=== PATIENT | male | born 1960 | race Caucasian/White ===

== ENCOUNTER 2024-05-21 14:56 | Outpatient (CLI) | payer MEDICARE, SELFPAY ==
--- NOTE | 2024-05-21 | CA_ITS ---
APPROVED REPORT EXAM: Comprehensive 2D, Doppler, and color-flow Echocardiogram Insurance Defense Attorney: Molly Alfonso RDCS Ht: 5 ft 10 in Wt: 225lbs BSA: 2.19 BP: 110/78 mmHg Indications: HEART TRANSPLANT,EF FXN 2D Dimensions LVOT 2.23 cm (M/F) 1.5-2.5 M-Mode Dimensions RVDd 3.43 cm (0.9-2.6) LVDd 4.93 cm (3.5-5.7) LVDs 3.16 cm (3.5-5.7) IVSd 1.06 cm (0.6-1.1) PWd 1.06 cm (0.6-1.1) EF (Teich) 65.30% FS 35.90% EDV (Teich) 114.40 mL ESV (Teich) 39.70 mL LV Diastology E Decel Time 194 (160-240 msec) E/A Ratio 2.2 Mitral Valve MV E Max Prashanth. 71.0 (40-130 cm/s) MV A Velocity 33.0 (40-130 cm/s) E/A Ratio 2.12 MV Decel. Time 194 (160-240 ms) Left Ventricle Reported history of OHT. The left ventricle is normal size. The left ventricular systolic function is normal. The left ventricular ejection fraction is within the normal range. Mild proximal septal thickening is noted. There is normal LV segmental wall motion. Diastolic function is indeterminate. LVEF is 60%. Right Ventricle Right ventricle is mildly dilated. Right ventricle is mildly hypokinetic. Atria The left atrium is dilated in the setting of transplant. The right atrium is not well visualized. There is no Doppler evidence of interatrial shunt. Aortic Valve The aortic valve is mildly thickened. There is no aortic valvular stenosis. No aortic regurgitation is present. Mitral Valve The mitral valve is normal in structure. No evidence of mitral valve stenosis. Trace mitral regurgitation. Tricuspid Valve Tricuspid valve is grossly normal in structure and function. Trace tricuspid regurgitation. There is insufficient TR jet to estimate RVSP. Pulmonic Valve The pulmonary valve is normal in structure. Trace pulmonic regurgitation. Great Vessels The aortic root is normal in size. The ascending aorta is not well visualized. IVC is normal in size and collapses >50% with inspiration. Pericardium There is no pericardial effusion. Other Information Study Quality: Technically Difficult Conclusion Technically difficult study due to poor acoustic windows. Reported history of OHT. Normal LV systolic function (LVEF 60%). Mild RV dilation with mild reduction in RV function. No significant valvular stenosis or regurgitation. Electronically signed by : Shirley Painting MD 05/29/2024 23:28:01
== END 2024-05-21 23:59 | disposition home or self-care (01) ==
LOC: RT 14:58
PROVIDERS: PCP Family Medicine; Visit Provider Nurse Practitioner Adult Health
DX: Z94.1 Heart transplant status (principal)
CPT/HCPCS: 93306